=== PATIENT | female | born 2000 | race African-American/Black ===

== ENCOUNTER 2021-11-23 04:12 | Emergency (ER) | payer SELFPAY ==
[~2021-11-23] VITALS: Ht 154.9 cm; Wt 54.4 kg
[2021-11-23 04:20] VITALS: BP 127/82
--- NOTE | 2021-11-23 05:32 | NUR ---
Patient discharged to home in stable condition. Written and verbal after care instructions given. Patient verbalizes understanding of instruction.
== END 2021-11-23 05:32 | disposition home or self-care (01) ==
LOC: ER 04:14
DX: F15.10 Other stimulant abuse, uncomplicated (principal); F17.200 Nicotine dependence, unspecified, uncomplicated; Z59.00 Homelessness unspecified